=== PATIENT | female | born 1960 | race Caucasian/White ===

== ENCOUNTER 2019-01-05 20:48 | Emergency (ER) | payer OTHER ==
[2019-01-05 20:59] VITALS: BP 167/106; PULSE 86; RESP 18; TEMP 98.4
--- NOTE | 2019-01-05 21:37 | XR ---
EXAMINATION TYPE: XR ankle complete LT DATE OF EXAM: 01/05/2019 COMPARISON: None HISTORY: Stepped in hole felt a pop TECHNIQUE: Three-view left ankle FINDINGS: Ankle mortise is intact. Some minimal soft tissue swelling may be over the lateral malleolu s inferiorly. Soft tissues otherwise appear unremarkable. No displaced fractures are evident. Large p lantar calcaneal heel spur is present. Follow-up studies can be performed 7-10 days from acute trauma for continued pain. IMPRESSION: 1. Minimal soft tissue swelling inferior lateral malleolus. 2. See left foot x-ray same date for base of fifth metatarsal fracture
--- NOTE | 2019-01-05 21:38 | XR ---
EXAMINATION TYPE: XR foot complete LT DATE OF EXAM: 01/05/2019 COMPARISON: None HISTORY: Stepped in hole felt a pop TECHNIQUE: Three-view left foot FINDINGS: There is a transverse fracture at the base of the fifth metatarsal. This may be a spiral fr acture or comminuted fracture. No additional fractures are evident. Soft tissues have mild prominence over the fracture site. Large plantar calcaneal heel spur is noted IMPRESSION: 1. Fracture at the base of fifth metatarsal.
--- NOTE | 2019-01-05 21:57 | ED ---
Lower Extremity Injury HPI - General Source: patient Mode of arrival: wheelchair Limitations: no limitations <Britta Bhakta - Last Filed: 01/05/19 23:26> <Mounika Torres - Last Filed: 01/06/19 05:32> - General Chief Complaint: Extremity Injury, Lower Stated Complaint: Foot injury Time Seen by Provider: 01/05/19 21:11 - History of Present Illness Initial Comments: 58-year-old female presenting for left foot pain. Patient states she was walking the grass when she stepped in a sunken area, head a crack and felt a pain in the lateral aspect of her left foot. Patient denies a pain of the forefoot. Patient denies pain at the ankle. Patient denies numbness tingling or loss sensation grossly deformity or decreased range of motion at the MTP DIP or PIP joints of the digits of the feet. Patient denies fall head injury injury to any other extremity. Remaining review of systems negative patient states she is able to weight-bear however is very painful. (Britta Bhakta) - Related Data Allergies Allergy/AdvReac Type Severity Reaction Status Date / Time codeine Allergy Nausea & Verified 01/05/19 21:00 Vomiting Review of Systems ROS Other: All systems not noted in ROS Statement are negative. <Britta Bhakta - Last Filed: 01/05/19 23:26> ROS Other: All systems not noted in ROS Statement are negative. <Mounika Torres - Last Filed: 01/06/19 05:32> ROS Statement: Those systems with pertinent positive or pertinent negative responses have been documented in the HPI. Past Medical History Past Surgical History: Section <Britta Bhakta - Last Filed: 01/05/19 23:26> General Exam Limitations: no limitations <Britta Bhakta - Last Filed: 01/05/19 23:26> - General Exam Comments Initial Comments: General: The patient is awake and alert, in no distress, and does not appear acutely ill. Eye: Pupils are equal, round and reactive to light, extra-ocular movements are intact. No nystagmus. There is normal conjunctiva bilaterally. No signs of icterus. Cardiovascular: There is a regular rate and rhythm. No murmur, rub or gallop is appreciated. Respiratory: Lungs are clear to auscultation, respirations are non-labored, breath sounds are equal. No wheezes, stridor, rales, or rhonchi. Musculoskeletal: Upon inspection of the foot there is obvious soft tissue swelling near the fifth metatarsal. No deviation at the digits. NO bruising of plantar aspect. No bruising or tenderness to metacarpals 12 and 3. Normal ROM, at MTP DIP and PIP joints of all 5 digits of the feet bilaterally. Strength 5/5 intact. Sensation intact both proximal distal to injury site. DP pulses equal bilaterally 2+. The pain or swelling at the lateral or medial malleolus no point localized tenderness at the lateral or medial maleolus. Neurological: A&O x 3. CN II-XII intact, There are no obvious motor or sensory deficits. Coordination appears grossly intact. Speech is normal. Skin: Skin is warm and dry and no rashes or lesions are noted. Psychiatric: Cooperative, appropriate mood & affect, normal judgment. (Britta Bhakta) Course Vital Signs 01/05/19 20:56 Temperature 98.4 F Pulse Rate 86 Respiratory 18 Rate Blood Pressure 167/106 O2 Sat by Pulse 99 Oximetry Medical Decision Making <Britta Bhakta - Last Filed: 01/05/19 23:26> <Mounika Torres - Last Filed: 01/06/19 05:32> - Medical Decision Making 58-year-old feel presents for left foot pain. After injury. No fall. Imaging studies concerning for Woodson fracture true most likely zone 2. Patient is neurovascular intact. Patient is not a elite athlete. There does not appear to be displacement. Patient will be placed in a well-padded posterior mold splint with nonweightbearing instruction. Patient was provided crutches. Patient was educated on the importance of close follow-up as well as the risk of delayed healing due to type fracture. Patient is neurovascularly intact. As time feel patient is stable for discharge with outpatient follow-up. I discused case and reviewed imaging studies with attending doctor, Dr. Torres. SHe is agreeable with plan. Patient is to f/u with foot and ankle specialist Dr. Millard. (Britta Bhakta) I was available for consultation in the emergency department. The history and physical exam were done by the midlevel provider. I was consulted for this patient's care. I reviewed the case with the midlevel provider and based on their presentation of the patient, I agree with the assessment, medical decision making and plan of care as documented. Chart was dictated using [employer] dictation software. Attempts were made to [place] ect any dictation errors however some typographical errors may persist. (Mounika Torres) Disposition Is patient prescribed a controlled substance at d/c from ED?: No Time of Disposition: 21:56 <Britta Bhakta - Last Filed: 01/05/19 23:26> <Mounika Torres - Last Filed: 01/06/19 05:32> Clinical Impression: Woodson fracture, Fracture of 5th metatarsal, Foot pain Disposition: HOME SELF-CARE Condition: Good Instructions (If sedation given, give patient instructions): Foot Fracture in Adults (ED) Additional Instructions: Please use medication as discussed. Please follow-up with orthopedic surgery in the next 1-2 days. NO WEIGHT BEARING AT ANYTIME, CRUTCHES ARE TO BE USED. Please return to emergency room if the symptoms increase or worsen or for any other concerns. Referrals: Christiano Webb MD [Primary Care Provider] - 1-2 days Uzair Millard MD [Medical Doctor] - 1-2 days
== END 2019-01-05 22:58 | disposition home or self-care (01) ==
LOC: SUPCPDRO 20:48 → EC 20:48
DX: S92.352A Displaced fracture of fifth metatarsal bone, left foot, initial encounter for closed fracture (principal); Z88.5 Allergy status to narcotic agent; W19.XXXA Unspecified fall, initial encounter; Y93.01 Activity, walking, marching and hiking; Y92.096 Garden or yard of other non-institutional residence as the place of occurrence of the external cause
CPT/HCPCS: 99283